=== PATIENT | female | born 1945 | race African-American/Black ===

== ENCOUNTER 2018-02-19 18:21 | Emergency (ER) | payer MEDICARE ==
[~2018-02-19] VITALS: Ht 152.4 cm; Wt 71.0 kg
[2018-02-19] MEDS ORDERED: IBUPROFEN 400MG TABLET PO ONE (23:00)
[2018-02-19 23:21] VITALS: BP 155/55
== END 2018-02-20 01:36 | disposition home or self-care (01) ==
LOC: ER 18:21
DX: S80.01XA Contusion of right knee, initial encounter (principal); S60.221A Contusion of right hand, initial encounter; I10 Essential (primary) hypertension; E78.00 Pure hypercholesterolemia, unspecified; W19.XXXA Unspecified fall, initial encounter; Y93.89 Activity, other specified; Y92.89 Other specified places as the place of occurrence of the external cause; Y99.8 Other external cause status
CPT/HCPCS: 73130; 73562; 99283